=== PATIENT | male | born 1960 | race Caucasian/White ===

== ENCOUNTER 2018-03-26 11:40 | Emergency (ER) | payer MEDICAID ==
[2018-03-26 11:51] VITALS: BP 128/74; Ht 180.3 cm
[2018-03-26 12:29] LABS: BASOPHIL % 0.7 % (0-2); RED CELL DISTRIBUTION WIDTH 14.2 % (11.5-14.5)
[2018-03-26 12:34] LABS: PLATELET COUNT 113 x10^3mcL (130-400)
[2018-03-26 12:57] LABS: BILIRUBIN TOTAL 0.41 mg/dL (0.20-1.00); CARBON DIOXIDE 37.2 mmol/L (21-32); POTASSIUM SERUM 4.5 mmol/L (3.5-5.1)
[2018-03-26 13:01] LABS: ALBUMIN 3.1 g/dL (3.4-5.0); CREATININE SERUM 8.6 mg/dL (0.7-1.3)
== END 2018-03-26 13:37 | disposition home or self-care (01) ==
LOC: ED 11:40
PROVIDERS: Emergency Medicine
DX: G25.3 Myoclonus (principal); K62.5 Hemorrhage of anus and rectum; D64.9 Anemia, unspecified; N18.9 Chronic kidney disease, unspecified
CPT/HCPCS: 36415